=== PATIENT | female | born 1955 | race Caucasian/White ===

== ENCOUNTER 2016-07-08 09:02 | Emergency (ER) | payer OTHER, BC ==
[2016-07-08 09:11] VITALS: BP 140/87
[2016-07-08] MEDS ORDERED: Sodium Chloride 0.9% 10 ML Syringe FLUSH PRN (09:21)
[2016-07-08] MEDS ORDERED: HYDROmorphone 0.5 MG/0.5 ML Syringe IVPUSH ONE (10:14)
--- NOTE | 2016-07-08 10:25 | EDM.PDOC ---
ED HPI Trauma - General Chief Complaint: Lower Extremity Injury/Pain Stated Complaint: [facility] Time Seen by Provider: 07/08/16 09:11 Source: Reports: Patient, RN notes reviewed - History of Present Illness INITIAL COMMENTS - FREE TEXT/NARRATIVE: 61-year-old female has been brought in by [facility] for evaluation of quite severe right leg pain. She was at work at [employer] when he "practice" fell onto her right leg. This was metal, fairly heavy with an edge that scraped against her lower right leg. SHe has severe pain area Injury. She's given 25 mcg fentanyl IV x2 while in route per ambulance. That has helped her and pain is more tolerable upon arrival to ED. No other pain or injury from this incident. No distal numbness or tingling. Allergies/ADRs: Allergies amoxicillin [From Augmentin] Allergy (Verified 07/08/16 09:11) Syncope clavulanic acid [From Augmentin] Allergy (Verified 07/08/16 09:11) Syncope Home Medications: Ambulatory Orders Hydrocodone/Acetaminophen [[place] 5-325 Tablet] 1 each PO Q6HR PRN #14 tablet Lisinopril/Hydrochlorothiazide [Lisinopril-Hctz 10-12.5 mg Tab] 1 tab PO DAILY 07/08/16 [Confirmed 07/08/16] Past Medical History Gastrointestinal History: Reports: Chronic constipation Oncologic (Cancer) History: Reports: Breast - Past Surgical History Other Female Surgeries/Procedures: left mastectomy Social & Family History - Family History Family Medical History: Noncontributory - Tobacco Use Smoking Status *Q: Current Every Day Smoker Years of Tobacco use: 25 Packs/Tins Daily: 0.7 - Caffeine Use Caffeine Use: Reports: Coffee Review of Systems - Review of Systems Review Of Systems: See Below Constitutional: Reports: no symptoms Eyes: Reports: no symptoms Mouth/Throat: Reports: no symptoms Respiratory: Denies: Shortness of Breath Cardiovascular: Denies: chest pain GI/Abdominal: Denies: Abdominal pain, Nausea, Vomiting Musculoskeletal: Reports: leg pain (Severe, right lower leg) Skin: Reports: erythema (Right lower leg area of injury), other (No laceration, no bleeding) Neurological: Denies: Numbness, Tingling, Weakness Trauma Exam - Physical Exam Exam: See Below General Appearance: Reports: alert Head: Reports: atraumatic Eyes: bilateral eye: PERRL Ears: Reports: normal external exam Nose: Reports: normal inspection Throat/Mouth: Reports: Normal inspection, Normal oropharynx Neck: Reports: full range of motion Respiratory Exam: Reports: lungs clear, normal breath sounds Cardiovascular: Reports: regular rate, rhythm Extremities: Reports: bony-point tenderness (Right lower leg), other (Area of erythema secondary to scrape and contusion injury, mild localized swelling, calf muscle is not swollen medially laterally or posteriorly, no posterior calf muscle tenderness) Neurologic: Reports: no motor/sensory deficits Skin: Reports: Warm/dry Course - Vital Signs Last Recorded V/S: Last Vital Signs Temp 98.5 F 07/08/16 09:08 Pulse 82 07/08/16 09:08 Resp 18 07/08/16 09:08 BP 140/87 07/08/16 09:08 Pulse Ox 100 07/08/16 09:08 - Orders/Labs/Meds Orders: Active Orders 24 hr Category Date Time Status Peripheral IV Care [RC] . DIRECTED Care 07/08/16 09:21 Active Tibia Fibula Rt [CR] Stat Exams 07/08/16 09:21 Taken Sodium Chloride 0.9% [Saline Flush] Med 07/08/16 09:21 Active 10 ml FLUSH ASDIRECTED PRN Peripheral IV Insertion Adult [OM.PC] Stat Oth 07/08/16 09:21 Ordered Medication Orders Sodium Chloride (Saline Flush) 10 ml FLUSH ASDIRECTED PRN PRN Reason: Keep Vein Open Last Admin: 07/08/16 10:26 Dose: 10 ml Meds: Medications Generic Name Dose Route Start Last Admin Trade Name Freq PRN Reason Stop Dose Admin Sodium Chloride 10 ml 07/08/16 09:21 07/08/16 10:26 Saline Flush FLUSH 10 ml ASDIRECTED PRN Administration Keep Vein Open Discontinued Medications Generic Name Dose Route Start Last Admin Trade Name Freq PRN Reason Stop Dose Admin Hydromorphone HCl 0.5 mg 07/08/16 10:14 07/08/16 10:26 Dilaudid IVPUSH 07/08/16 10:15 0.5 mg ONETIME ONE Administration - Radiology Interpretation Free Text/Narrative:: No fracture visible on x-ray, she did have a couple of small doses of fentanyl IV in route. That is wearing off, we'll give Dilaudid 0.5 mg IV now. Discharge instructions as documented - Re-Assessments/Exams Free Text/Narrative Re-Assessment/Exam: 07/08/16 10:51. X-rays of the leg showed no visible fracture Departure - Departure Time of Disposition: 10:22 Disposition: Home, Self-Care 01 Condition: fair Clinical Impression: Contusion of leg, right Qualifiers: Encounter type: initial encounter Qualified Code(s): S80.11XA - Contusion of right lower leg, initial encounter Prescriptions: Hydrocodone/Acetaminophen [[place] 5-325 Tablet] 1 each PO Q6HR PRN #14 tablet PRN Reason: Pain Instructions: Contusion, [id number] Referrals: PCP,Not In Area [Primary Care Provider] - Forms: ED Department Discharge Additional Instructions: Pressure dressing right leg, keep leg elevated above waist as much as possible as discussed, intermittent ice packs for swelling especially today and tomorrow , Tylenol for mild to moderate discomfort or hydrocodone if needed for more severe pain, do not take Tylenol and hydrocodone at the same time. Do not drive or work when taking hydrocodone. Return to work next Wednesday as tolerated, followup clinic if not better by Wednesday, return to ED as needed - My Orders Last 24 Hours: My Active Orders 07/08/16 09:21 Peripheral IV Care [RC] . DIRECTED Tibia Fibula Rt [CR] Stat Sodium Chloride 0.9% [Saline Flush] 10 ml FLUSH ASDIRECTED PRN Peripheral IV Insertion Adult [OM.PC] Stat - Assessment/Plan Last 24 Hours: My Active Orders 07/08/16 09:21 Peripheral IV Care [RC] . DIRECTED Tibia Fibula Rt [CR] Stat Sodium Chloride 0.9% [Saline Flush] 10 ml FLUSH ASDIRECTED PRN Peripheral IV Insertion Adult [OM.PC] Stat
--- NOTE | 2016-07-08 11:50 | CR ---
Right tibia and fibula: Two views of the right tibia and fibula were obtained. No fracture or other bony abnormality is seen. Impression: 1. No abnormality is identified on right tibia and fibula study. Diagnostic code #1
== END 2016-07-08 10:46 | disposition home or self-care (01) ==
LOC: JD.ED 09:02
DX: S80.11XA Contusion of right lower leg, initial encounter (principal); F17.210 Nicotine dependence, cigarettes, uncomplicated; Z88.1 Allergy status to other antibiotic agents; Z88.8 Allergy status to other drugs, medicaments and biological substances; W20.8XXA Other cause of strike by thrown, projected or falling object, initial encounter; Y99.0 Civilian activity done for income or pay
CPT/HCPCS: 73590; 96374; 99283; J1170; J7050; 99284; 99284-25

== ENCOUNTER 2019-04-21 13:16 | Emergency (ER) | payer BC ==
[2019-04-21 13:25] VITALS: BP 124/109; PULSE 76
--- NOTE | 2019-04-21 13:50 | EDM.PDOC ---
ED HPI GENERAL MEDICAL PROBLEM - General Source of Information: Reports: Patient History Limitations: Reports: No Limitations - History of Present Illness Onset: Today, Sudden Location: Reports: Head Associated Symptoms: Reports: Confusion (at time of syncopal event ), Diaphoresis, Weakness <Maryjo Forbes - Last Filed: 04/21/19 13:39> <Yohan Moreno - Last Filed: 04/21/19 15:08> - General Chief Complaint: Syncope Stated Complaint: [facility] Time Seen by Provider: 04/21/19 13:26 - History of Present Illness INITIAL COMMENTS - FREE TEXT/NARRATIVE: 64-year-old female presents with a syncopal episode that occurred while she was going to the bathroom at work today. She states she was straining to have a BM when she began to feel warm and lightheaded. She was able to lower herself to the floor and did not fall or hit her head. She states that she was in a public restroom so one of her coworkers found her and called the ambulance. She does not feel that she lost consciousness but does note she felt very confused and was not able to see clearly. She recalls "coming to" in the ambulance. Currently , she does not have a headache or any neurological deficits. She is still very warm and diaphoretic. She denies any current changes to vision or hearing, chest pain, shortness of breath, cough, congestion, ear pain, body aches, nausea , vomiting, and diarrhea. She does take a daily laxative but notes today's bowel movement was more difficult and she had to strain more. The patient denies any history of cardiac problems. She is currently being treated for breast cancer with a "hormone." Her has also been recently diagnosed with influenza. (Maryjo Forbes) - Related Data Allergies Allergy/AdvReac Type Severity Reaction Status Date / Time amoxicillin [From Augmentin] Allergy Syncope Verified 04/21/19 13:25 clavulanic acid Allergy Syncope Verified 04/21/19 13:25 [From Augmentin] Home Meds: Home Meds Hydrocodone/Acetaminophen [[place] 5-325 Tablet] 1 each PO Q6HR PRN #14 tablet [Rx] Lisinopril/Hydrochlorothiazide [Lisinopril-Hctz 10-12.5 mg Tab] 1 tab PO DAILY 07/08/16 [History] Past Medical History Cardiovascular History: Reports: Hypertension Gastrointestinal History: Reports: Chronic Constipation Oncologic (Cancer) History: Reports: Breast - Past Surgical History Other Female Surgeries/Procedures: left mastectomy <Maryjo Forbes - Last Filed: 04/21/19 13:39> Social & Family History - Family History Family Medical History: Noncontributory - Tobacco Use Smoking Status *Q: Current Every Day Smoker Years of Tobacco use: 50 Packs/Tins Daily: 0.5 - Caffeine Use Caffeine Use: Reports: Coffee - Recreational Drug Use Recreational Drug Use: No <MarkieniltonMaryjo parker - Last Filed: 04/21/19 13:39> ED ROS GENERAL - Review of Systems Review Of Systems: See Below Constitutional: Reports: Chills, Weakness, Diaphoresis HEENT: Reports: Glasses, Vision Change (during syncopal episode (blurry)). Denies: Ear Pain, Hearing Loss, Sinus Problem, Throat Pain Respiratory: Reports: No Symptoms Cardiovascular: Reports: Blood Pressure Problem (BP was low when ambulance picked her up ), Lightheadedness. Denies: Chest Pain, Palpitations GI/Abdominal: Reports: No Symptoms : Reports: No Symptoms Musculoskeletal: Reports: No Symptoms Skin: Reports: No Symptoms Neurological: Reports: Confusion (during syncopal episode only ). Denies: Headache, Trouble Speaking, Difficulty Walking Psychiatric: Reports: No Symptoms <Maryjo Forbes - Last Filed: 04/21/19 13:39> - Physical Exam Exam: See Below Exam Limited By: No Limitations General Appearance: Alert, WD/WN, No Apparent Distress Eye Exam: Bilateral Eye: EOMI, Normal Inspection, PERRL Ears: Normal External Exam, Normal Canal, Hearing Grossly Normal, Normal TMs Nose: Normal Inspection, Normal Mucosa, No Blood Throat/Mouth: Normal Inspection, Normal Lips, Normal Teeth, Normal Gums, Normal Oropharynx, Normal Voice, No Airway Compromise Head Exam: Atraumatic, Normocephalic Neck: Normal Inspection, Supple, Non-Tender, Full Range of Motion. No: Lymphadenopathy (L), Lymphadenopathy (R) Respiratory/Chest: No Respiratory Distress, Lungs Clear, Normal Breath Sounds, No Accessory Muscle Use, Chest Non-Tender Cardiovascular: Normal Peripheral Pulses, Regular Rate, Rhythm, No Murmur Neuro Exam (Abbreviated): Alert, Oriented, CN II-XII Intact, Normal Cognition, No Motor/Sensory Deficits Psychiatric: Normal Affect, Normal Mood Skin Exam: Warm, Dry, Intact, Normal Color, No Rash <MarkieniltonMaryjo parker L - Last Filed: 04/21/19 13:39> Course <Maryjo Forbes L - Last Filed: 04/21/19 13:39> <Yohan Moreno - Last Filed: 04/21/19 15:08> - Vital Signs Last Recorded V/S: Last Vital Signs Temp 97.8 F 04/21/19 13:23 Pulse 76 04/21/19 13:23 Resp 16 04/21/19 13:23 BP 124/109 H 04/21/19 13:23 Pulse Ox 95 04/21/19 13:23 - Orders/Labs/Meds Orders: Active Orders 24 hr Category Date Time Status Cardiac Monitoring [RC] . DIRECTED Care 04/21/19 13:40 Active EKG Documentation Completion [RC] STAT Care 04/21/19 13:40 Active Labs: Laboratory Tests 04/21/19 04/21/19 Range/Units 14:00 14:00 WBC 16.20 H (3.98-10.04) K/mm3 RBC 4.73 (3.98-5.22) M/mm3 Hgb 14.5 (11.2-15.7) gm/dl Hct 41.7 (34.1-44.9) % MCV 88.2 (79.4-94.8) fl MCH 30.7 (25.6-32.2) pg MCHC 34.8 (32.2-35.5) g/dl RDW Std Deviation 41.5 (36.4-46.3) fL Plt Count 318 (182-369) K/mm3 MPV 8.4 L (9.4-12.3) fl Neut % (Auto) 88.3 H (34.0-71.1) % Lymph % (Auto) 5.7 L (19.3-51.7) % [place] % (Auto) 5.4 (4.7-12.5) % Eos % (Auto) 0.2 L (0.7-5.8) Baso % (Auto) 0.2 (0.1-1.2) % Neut # (Auto) 14.29 H (1.56-6.13) K/mm3 Lymph # (Auto) 0.93 L (1.18-3.74) K/mm3 [place] # (Auto) 0.88 H (0.24-0.36) K/mm3 Eos # (Auto) 0.03 L (0.04-0.36) K/mm3 Baso # (Auto) 0.03 (0.01-0.08) K/mm3 Manual Slide Review Abnormal smear Sodium 129 L (136-145) mEq/L Potassium 4.4 (3.5-5.1) mEq/L Chloride 95 L (98-107) mEq/L Carbon Dioxide 27 (21-32) mEq/L Anion Gap 11.4 (5-15) BUN 13 (7-18) mg/dL Creatinine 0.9 (0.55-1.02) mg/dL Est Cr Clr Drug Dosing 56.08 mL/min Estimated GFR (MDRD) > 60 (>60) mL/min BUN/Creatinine Ratio 14.4 (14-18) Glucose 97 (80-115) mg/dL Calcium 9.1 (8.5-10.1) mg/dL Total Bilirubin 0.4 (0.2-1.0) mg/dL AST 19 (15-37) U/L ALT 24 (14-59) U/L Alkaline Phosphatase 60 (46-116) U/L Troponin I < 0.017 (0.00-0.056) ng/mL Total Protein 7.1 (6.4-8.2) g/dl Albumin 3.8 (3.4-5.0) g/dl Globulin 3.3 gm/dL Albumin/Globulin Ratio 1.2 (1-2) - Re-Assessments/Exams Free Text/Narrative Re-Assessment/Exam: 04/21/19 15:03 I examined the patient myself and I agree with Maryjo's assessment and plan. I ordered labs and EKG. Her WBC was elevated at 16.2. Her Na is a little low at 129. Her troponin is negative. Her EKG shows NSR with no acute changes. I will order a holter monitor. (Yohan Moreno) Departure <Maryjo Forbes - Last Filed: 04/21/19 13:39> - Departure Time of Disposition: 15:10 Condition: Good - Discharge Information *PRESCRIPTION DRUG MONITORING PROGRAM REVIEWED*: Not Applicable *COPY OF PRESCRIPTION DRUG MONITORING REPORT IN PATIENT FIONA: Not Applicable <Yohan Moreno - Last Filed: 04/21/19 15:08> - Departure Disposition: Home, Self-Care 01 Clinical Impression: Hyponatremia Syncope Qualifiers: Syncope type: unspecified Qualified Code(s): R55 - Syncope and collapse - Discharge Information Referrals: PCP,None [Primary Care Provider] - Chery García NP [Ordering Only Provider] - 1 Week Forms: ED Department Discharge Additional Instructions: Wear the holter monitor for 2 days. Drink plenty of fluids. Your sodium was low so you can have some extra salt in your diet the next week. Please return if you are worse. Sepsis Event Note - Evaluation Sepsis Screening Result: No Definite Risk - Focused Exam Date Exam was Performed: 04/21/19 Time Exam was Performed: 13:39 <Maryjo Forbes - Last Filed: 04/21/19 13:39> - Focused Exam Date Exam was Performed: 04/21/19 Time Exam was Performed: 15:03 <Yohan Moreno A - Last Filed: 04/21/19 15:08> - Focused Exam Vital Signs: Vital Signs Temp Pulse Resp BP Pulse Ox 04/21/19 13:23 97.8 F 76 16 124/109 H 95 - My Orders Last 24 Hours: My Active Orders 04/21/19 13:40 Cardiac Monitoring [RC] . DIRECTED EKG Documentation Completion [RC] STAT - Assessment/Plan Last 24 Hours: My Active Orders 04/21/19 13:40 Cardiac Monitoring [RC] . DIRECTED EKG Documentation Completion [RC] STAT
== END 2019-04-21 15:30 | disposition home or self-care (01) ==
LOC: JD.ED 13:16
DX: E87.1 Hypo-osmolality and hyponatremia (principal); R55 Syncope and collapse; I10 Essential (primary) hypertension; F17.210 Nicotine dependence, cigarettes, uncomplicated; Z88.0 Allergy status to penicillin; Z88.8 Allergy status to other drugs, medicaments and biological substances; Z79.899 Other long term (current) drug therapy
CPT/HCPCS: 36415; 80053; 84484; 85025; 87804; 93005; 93010; 93225; 93226; 99283; 99284-25

== ENCOUNTER 2020-05-05 08:01 | Emergency (ER) | payer BC, MEDICAID, MEDICARE, OTHER ==
[2020-05-05 08:07] VITALS: BP 157/96; PULSE 68
--- NOTE | 2020-05-05 08:22 | EDM.PDOC ---
ED HPI GENERAL MEDICAL PROBLEM - General Chief Complaint: Headache Stated Complaint: [facility] Time Seen by Provider: 05/05/20 08:01 - History of Present Illness INITIAL COMMENTS - FREE TEXT/NARRATIVE: 65-year-old female presents the emergency room with left shoulder pain, and is very severe headache. Patient has been having pain coming from the base of her neck into her left shoulder and down her arm since about Wednesday. She saw the chiropractor as she has had pain like this in the past. However, this did not help. Patient does not have a history of coronary artery disease however she is a smoker and is treated for hypertension. Patient also has breast cancer and is on a estrogen blocking medication. Patient awoke with a very severe headache around midnight approximately 8 hours ago. She does not have routine headaches like this. She cannot isolate which side is on is just very severe in the back of her head. She takes a baby aspirin a day but is on no blood thinners. Headache Pain Score (Numeric/FACES): 3 - Related Data Allergies Allergy/AdvReac Type Severity Reaction Status Date / Time amoxicillin [From Augmentin] Allergy Syncope Verified 05/05/20 08:07 clavulanic acid Allergy Syncope Verified 05/05/20 08:07 [From Augmentin] Home Meds: Home Meds Lisinopril/Hydrochlorothiazide [Lisinopril-Hctz 10-12.5 mg Tab] 1 tab PO DAILY 07/08/16 [History] Acetaminophen/HYDROcodone [Moselle 325-5 MG] 1 tab PO Q6H PRN #20 tablet 05/05/20 [Rx] Orphenadrine [Norflex] 100 mg PO BID #14 tab 05/05/20 [Rx] Past Medical History Cardiovascular History: Reports: Hypertension Gastrointestinal History: Reports: Chronic Constipation Oncologic (Cancer) History: Reports: Breast - Past Surgical History Other Female Surgeries/Procedures: left mastectomy Social & Family History - Family History Family Medical History: No Pertinent Family History - Tobacco Use Tobacco Use Status *Q: Current Every Day Tobacco User Years of Tobacco use: 50 Packs/Tins Daily: 0.2 - Caffeine Use Caffeine Use: Reports: Coffee ED ROS GENERAL - Review of Systems Review Of Systems: See Below Constitutional: Reports: No Symptoms HEENT: Reports: No Symptoms Respiratory: Reports: No Symptoms. Denies: Pleuritic Chest Pain Cardiovascular: Reports: Other (Shoulder and arm pain). Denies: Chest Pain Endocrine: Reports: No Symptoms GI/Abdominal: Reports: No Symptoms : Reports: No Symptoms Musculoskeletal: Reports: Neck Pain, Shoulder Pain, Arm Pain Skin: Reports: No Symptoms Neurological: Reports: Headache. Denies: Confusion, Dizziness Psychiatric: Reports: No Symptoms ED EXAM, GENERAL - Physical Exam Exam: See Below Exam Limited By: No Limitations General Appearance: Alert, No Apparent Distress Eye Exam: Bilateral Eye: Normal Inspection Ears: Normal External Exam, Normal Canal, Hearing Grossly Normal, Normal TMs Nose: Normal Inspection, Normal Mucosa, No Blood Throat/Mouth: Normal Inspection, Normal Lips, Normal Gums, Normal Oropharynx, Normal Voice, No Airway Compromise Head: Atraumatic, Normocephalic Neck: Other (Left paraspinous muscle spasm near the base of her neck this extends into her shoulder). No: Lymphadenopathy (L), Lymphadenopathy (R), Tender Midline Respiratory/Chest: No Respiratory Distress Cardiovascular: Regular Rate, Rhythm, No Edema, No Murmur GI/Abdominal: Normal Bowel Sounds, Soft, Non-Tender Back Exam: Normal Inspection. No: CVA Tenderness (L), CVA Tenderness (R) Extremities: Normal Inspection, No Pedal Edema Neurological: Other (He has equal drag down strength and upper extremity strength bilaterally and if anything her right lower extremity is just a little bit weaker than her left.) #1 Interpretation EKG Date: 05/05/20 Rhythm: NSR Rate (Beats/Min): 54 [place]: Normal P-Wave: Present QRS: Normal ST-T: Other (Inferior early repolarization pattern. No other diagnostic ST-T wave changes noted) QT: Normal Comparison: Change From Previous EKG (Patient is early repolarization in the inferior leads seen today if it was present on her last EKG March 22 of last year it was very subtle) EKG Interpretation Comments: Abnormal EKG Course - Vital Signs Last Recorded V/S: Last Vital Signs Temp 36.6 C 05/05/20 08:03 Pulse 68 05/05/20 08:03 Resp 16 05/05/20 08:03 BP 157/96 H 05/05/20 08:03 Pulse Ox 98 05/05/20 08:03 - Orders/Labs/Meds Orders: Active Orders 24 hr Category Date Time Status EKG Documentation Completion [RC] STAT Care 05/05/20 08:09 Active Labs: Laboratory Tests 05/05/20 05/05/20 05/05/20 Range/Units 08:25 08:25 08:25 WBC 6.78 (3.98-10.04) K/mm3 RBC 4.49 (3.98-5.22) M/mm3 Hgb 13.4 (11.2-15.7) gm/dl Hct 39.9 (34.1-44.9) % MCV 88.9 (79.4-94.8) fl MCH 29.8 (25.6-32.2) pg MCHC 33.6 (32.2-35.5) g/dl RDW Std Deviation 41.7 (36.4-46.3) fL Plt Count 292 (182-369) K/mm3 MPV 9.1 L (9.4-12.3) fl Neut % (Auto) 72.2 H (34.0-71.1) % Lymph % (Auto) 18.1 L (19.3-51.7) % [place] % (Auto) 8.1 (4.7-12.5) % Eos % (Auto) 1.0 (0.7-5.8) Baso % (Auto) 0.3 (0.1-1.2) % Neut # (Auto) 4.89 (1.56-6.13) K/mm3 Lymph # (Auto) 1.23 (1.18-3.74) K/mm3 [place] # (Auto) 0.55 H (0.24-0.36) K/mm3 Eos # (Auto) 0.07 (0.04-0.36) K/mm3 Baso # (Auto) 0.02 (0.01-0.08) K/mm3 PT 10.7 (9.7-12.0) SECONDS INR 1.00 APTT 26.9 (21.7-31.4) SECONDS D-Dimer, Quantitative (0.19-0.50) mg/L Sodium 139 D (136-145) mEq/L Potassium 4.3 (3.5-5.1) mEq/L Chloride 103 (98-107) mEq/L Carbon Dioxide 26 (21-32) mEq/L Anion Gap 14.3 (5-15) BUN 13 (7-18) mg/dL Creatinine 0.9 (0.55-1.02) mg/dL Est Cr Clr Drug Dosing TNP Estimated GFR (MDRD) > 60 (>60) mL/min BUN/Creatinine Ratio 14.4 (14-18) Glucose 91 (80-115) mg/dL Calcium 9.2 (8.5-10.1) mg/dL Total Bilirubin 0.4 (0.2-1.0) mg/dL AST 15 (15-37) U/L ALT 21 (14-59) U/L Alkaline Phosphatase 55 (46-116) U/L Troponin I < 0.017 (0.00-0.056) ng/mL Total Protein 7.0 (6.4-8.2) g/dl Albumin 3.7 (3.4-5.0) g/dl Globulin 3.3 gm/dL Albumin/Globulin Ratio 1.1 (1-2) 05/05/20 Range/Units 08:25 WBC (3.98-10.04) K/mm3 RBC (3.98-5.22) M/mm3 Hgb (11.2-15.7) gm/dl Hct (34.1-44.9) % MCV (79.4-94.8) fl MCH (25.6-32.2) pg MCHC (32.2-35.5) g/dl RDW Std Deviation (36.4-46.3) fL Plt Count (182-369) K/mm3 MPV (9.4-12.3) fl Neut % (Auto) (34.0-71.1) % Lymph % (Auto) (19.3-51.7) % [place] % (Auto) (4.7-12.5) % Eos % (Auto) (0.7-5.8) Baso % (Auto) (0.1-1.2) % Neut # (Auto) (1.56-6.13) K/mm3 Lymph # (Auto) (1.18-3.74) K/mm3 [place] # (Auto) (0.24-0.36) K/mm3 Eos # (Auto) (0.04-0.36) K/mm3 Baso # (Auto) (0.01-0.08) K/mm3 PT (9.7-12.0) SECONDS INR APTT (21.7-31.4) SECONDS D-Dimer, Quantitative 0.24 (0.19-0.50) mg/L Sodium (136-145) mEq/L Potassium (3.5-5.1) mEq/L Chloride (98-107) mEq/L Carbon Dioxide (21-32) mEq/L Anion Gap (5-15) BUN (7-18) mg/dL Creatinine (0.55-1.02) mg/dL Est Cr Clr Drug Dosing Estimated GFR (MDRD) (>60) mL/min BUN/Creatinine Ratio (14-18) Glucose (80-115) mg/dL Calcium (8.5-10.1) mg/dL Total Bilirubin (0.2-1.0) mg/dL AST (15-37) U/L ALT (14-59) U/L Alkaline Phosphatase (46-116) U/L Troponin I (0.00-0.056) ng/mL Total Protein (6.4-8.2) g/dl Albumin (3.4-5.0) g/dl Globulin gm/dL Albumin/Globulin Ratio (1-2) Meds: Medications Discontinued Medications Generic Name Dose Route Start Last Admin Trade Name Freq PRN Reason Stop Dose Admin Acetaminophen 975 mg 05/05/20 09:36 05/05/20 09:43 Tylenol PO 05/05/20 09:37 975 mg NOW STA Administration Hydrocodone Bitart/Acetaminophen 1 tab 05/05/20 12:18 05/05/20 12:25 [place] 325-5 Mg PO 05/05/20 12:19 1 tab ONETIME ONE Administration Cyclobenzaprine HCl 10 mg 05/05/20 09:59 05/05/20 10:53 Flexeril PO 05/05/20 10:00 10 mg ONETIME ONE Administration Fentanyl 50 mcg 05/05/20 10:43 05/05/20 10:53 Sublimaze IVPUSH 05/05/20 10:44 50 mcg ONETIME ONE Administration Fentanyl 50 mcg 05/05/20 12:19 05/05/20 12:25 Sublimaze IVPUSH 05/05/20 12:20 50 mcg ONETIME ONE Administration Ondansetron HCl 4 mg 05/05/20 10:42 05/05/20 10:53 Zofran IVPUSH 05/05/20 10:43 4 mg ONETIME ONE Administration - Re-Assessments/Exams Free Text/Narrative Re-Assessment/Exam: 05/05/20 08:37 We will check a head CT with the nature of her head headache. We will also check some labs EKG and chest x-ray. As I cannot exclude intrathoracic pathology is causing her pain 05/05/20 12:[address] is unremarkable for acute changes. Cervical spine shows disc space narrowing especially in the lower cervical spine she has some mild neuroforaminal narrowing at C5-6 and moderate neuroforaminal stenosis at C4-5 on the left side. No central canal stenosis identified on this exam. Patient did better with fentanyl. She was also given 10 mg of Flexeril and was able to get some rest. At this point we will put her on Norflex with the attempt it does not cause as much sedation as the Flexeril and put her on a gentle dose of hydrocodone. Prior to being discharged as her pain is returned we will give her a single hydrocodone here and another 50 of fentanyl but will watch her for the next 30 to 40 minutes. 05/05/20 13:23 Patient is doing much better at this time we will go and discharge home. Departure - Departure Time of Disposition: 13:23 Disposition: Home, Self-Care 01 Clinical Impression: Cervical strain, Cervical radiculopathy - Discharge Information Prescriptions: Acetaminophen/HYDROcodone [Moselle 325-5 MG] 1 tab PO Q6H PRN #20 tablet PRN Reason: Pain Orphenadrine [Norflex] 100 mg PO BID #14 tab Referrals: Chery García NP [Primary Care Provider] - Forms: ED Department Discharge Additional Instructions: Return to the emergency room with any questions problems or worsening in symptoms. You have been started on Norflex this is a muscle relaxant. Take 1 twice daily starting tonight. You have also been started on hydrocodone take 1 every 6 hours only if needed for pain. We are looking for 50 to 70% pain reduction. Follow-up with your regular healthcare provider and discuss checking an MRI if needed. Do not drive or return to work within 12 hours of taking the muscle relaxant or the pain pills. Sepsis Event Note (ED) - Evaluation Sepsis Screening Result: No Definite Risk - Focused Exam Vital Signs: Vital Signs Temp Pulse Resp BP Pulse Ox 05/05/20 08:03 36.6 C 68 16 157/96 H 98 - My Orders Last 24 Hours: My Active Orders 05/05/20 08:09 EKG Documentation Completion [RC] STAT - Assessment/Plan Last 24 Hours: My Active Orders 05/05/20 08:09 EKG Documentation Completion [RC] STAT
--- NOTE | 2020-05-05 09:21 | CT ---
Head CT Technique: Multiple axial sections through the brain were obtained. Intravenous contrast was not utilized. Reconstructed coronal and sagittal images were obtained. Comparison: No prior intracranial imaging is available. Findings: Ventricles along with basal cisterns and sulci of the convexities are minimally prominent. No abnormal parenchymal densities are seen. No evidence of intracranial hemorrhage. No midline shift or mass-effect is appreciated. Bone window settings were reviewed. Visualized mastoid sinuses and paranasal sinuses show nothing acute. No acute calvarial finding is appreciated. Impression: 1. Minimal atrophy. 2. Nothing acute is appreciated on noncontrast head CT exam. Diagnostic code #2
--- NOTE | 2020-05-05 09:21 | CR ---
Chest: Portable view of the chest was obtained. Comparison: Prior chest x-ray of 09/25/09. Heart size and mediastinum are within normal limits for portable technique. Lungs are clear with no acute parenchymal change. Surgical clips are seen within the right axillary region. Bony structures are osteopenic. Old ununited fracture is noted within the distal left clavicle. Impression: 1. Findings as noted above. 2. Nothing acute is appreciated. Diagnostic code #2
[2020-05-05] MEDS ORDERED: Acetaminophen 325 MG Tab PO STA (09:36)
[2020-05-05] MEDS ORDERED: Cyclobenzaprine 10 MG Tab PO ONE (09:59)
[2020-05-05] MEDS ORDERED: Ondansetron 4 MG/2 ML SDV IVPUSH ONE (10:42)
[2020-05-05] MEDS ORDERED: fentaNYL 100 MCG/2 ML SDV IVPUSH ONE ×2 (10:43→12:19)
--- NOTE | 2020-05-05 10:52 | CT ---
CT cervical spine Technique: Multiple axial sections were obtained through the cervical spine from above C1 inferiorly through the T3 level. Reconstructed coronal and sagittal images were obtained. Comparison: No prior cervical spine imaging is available. Findings: Severe degenerative change is noted between the dens and anterior arch of C1. Several detached bony densities are seen which appear old at this level. Mild disc space narrowing is noted at C4-5. Mild spondylolisthesis is noted at C4-5 measuring approximately 3.3 mm. This appears to be due to degenerative apophyseal change. Mild disc space narrowing is noted at C4-5. C5-6: Disc shows moderate narrowing. Posterior osteophytes are noted. C6-7: Fairly severe disc space narrowing is noted. Posterior osteophytes are seen. Scattered anterior osteophytes are also noted. Mild neural foraminal narrowing is noted on the right side at C5-6. Moderate left-sided neural foraminal stenosis is noted at C4-5 on the left side. No central canal stenosis is seen. Ligamentum nuchal calcification is seen. No fracture is appreciated. Bony structures are diffusely osteopenic. Impression: 1. Degenerative change as noted above. 2. Nothing acute is appreciated on CT study of the cervical spine. Diagnostic code #2
[2020-05-05] MEDS ORDERED: Acetaminophen/HYDROcodone 325-5 MG Tab PO ONE (12:18)
== END 2020-05-05 13:33 | disposition home or self-care (01) ==
LOC: JD.ED 08:01
DX: S16.1XXA Strain of muscle, fascia and tendon at neck level, initial encounter (principal); M54.12 Radiculopathy, cervical region; R51.9 Headache, unspecified; I10 Essential (primary) hypertension; F17.200 Nicotine dependence, unspecified, uncomplicated; Z79.899 Other long term (current) drug therapy; Z88.0 Allergy status to penicillin; Z88.1 Allergy status to other antibiotic agents; X58.XXXA Exposure to other specified factors, initial encounter
CPT/HCPCS: 36415; 70450; 71045; 72125; 80053; 84484; 85025; 85379; 85610; 85730; 93005; 96374; 96375; 96376; 99285; A9270; J2405; J3010; 93010; 99284